=== PATIENT | male | born 1990 | race Caucasian/White ===

== ENCOUNTER 2024-10-07 11:21 | Emergency (ER) | payer OTHER, SELFPAY ==
[2024-10-07 11:23] VITALS: BP 111/78
[2024-10-07 11:50] VITALS: BMI 22.6
--- NOTE | 2024-10-07 11:53 | EDRN ---
Patient was playing disc frisbee and fell onto his left hand. +FOOSH. + 2 radial pulse. Brisk capillary refill.
--- NOTE | 2024-10-07 13:05 | ED.GENMED ---
History of Present Illness
General
Chief Complaint: Musculo-Skeletal Complaint
Source: patient
Exam Limitations: none
Time Seen by Provider: 10/07/24 12:09
Nursing documentation reviewed up to this point in time: agreed with
History of Present Illness
History of Present Illness:
This 34-year-old male presenting to the emergency department today with concerns of left-sided wrist discomfort after falling awkwardly while playing [employer]bee prior to arrival. Denies any numbness weakness or additional concerns otherwise.
No additional injuries. Not on blood thinners.
Review of Systems
Review of Systems
Allergies reviewed?: Yes
All Other Systems: ROS reviewed and negative except as documented in HPI and ROS
Phy Exam
Physical Exam
Physical Exam:
GENERAL: Alert , in no apparent distress
EYE: pupils equal and reactive
NECK: Supple, no significant adenopathy.
ENT: o/p clr, mmm.
CARDIAC: Regular rate and rhythm .
LUNGS: Clear breath sounds bilaterally, no acute respiratory distress, no wheezes/rales/rhonchi
ABDOMEN: Soft, without focal tenderness, no r/g, no cvat
NEUROLOGICAL: Alert and oriented, no focal neuro deficits
SKIN: Warm and dry, skin intact.
MUSCULOSKELETAL: Slight swelling to the distal forearm significant discomfort any movement at the wrist. Distal pulses at the radial and ulnar pulse. Good distal cap refill no edema, well perfused.
PSYCH: Normal and appropriate interaction.
Course
Orders/Labs/Results
Orders:
Orders
10/07/24 11:51
CR Wrist - Left Min 3 Views Urgent
Comment:
Reason For Exam: injury/pain
10/07/24 12:34
Splints/Slings/Crut- Treatment ONCE
Sling to: Left Arm
Location: Left
Type of Splint: Other
Comment: sugar tong
Vital Signs
Initial and Last Documented VS:
Initial Vital Signs
Temp Pulse Resp BP Pulse Ox
98.4 F 78 16 111/78 99
10/07/24 11:23 10/07/24 11:23 10/07/24 11:23 10/07/24 11:23 10/07/24 11:23
Last Documented Vital Signs
Temp Pulse Resp BP Pulse Ox
98.4 F 78 16 111/78 99
10/07/24 11:23 10/07/24 11:23 10/07/24 11:23 10/07/24 11:23 10/07/24 11:23
Procedures
Splinting/Sling Placement
Left Distal Wrist:
Procedure completed by: Tech/myself
Pre-splint extermity exam: neurovascular intact
Type of splint: thumb spica
Splint material: fiberglass
Splint checked by provider?: Yes
Type of sling: sling fitted
Normal distal neurovascular exam?: Yes
MDM/Problems Addressed
MDM/Problems Addressed:
34-year-old male presenting to the emergency department today with concerns of wrist discomfort after landing on his wrist while playing ultimate [employer]. Patient is found to have a distal radius and ulnar fracture. Patient was splinted.
Otherwise neurovascular intact and will follow-up with orthopedics next week. Return precautions given.
*Pulse Oximetry
SaO2: 99
Oxygen Mode of Delivery: Room air
Patient hypoxic: no (99)
*Critical Care Note
Total Time (30-74mins, 75-104mins- exclusive of procedures): Not Applicable
ED Attending Note
-
Portions of this chart may have been created with voice recognition software.� Occasional wrong word or��sound alike� substitutions may have occurred due to the inherent limitations of voice recognition software.
Discharge Plan
Departure
Patient Disposition: Home (Routine Discharge)
Date of Disposition: 10/07/24
Time of Disposition: 13:11
Patient with high blood pressure during this ER visit?: No
Condition: Good
Covid-19: Not Applicable
Discharge Problem:
Fracture of left wrist
Instructions: Wrist Fracture (DC)
Prescriptions:
No Action
No Current Medications
0
Referrals:
Salomon Rosas MD [Active, Orthopedics] - Follow up in 5-7 days
Kishor Bhatia CRNP [Family Provider, General]
Activity Restrictions/Additional Instructions:
You came to the emergency department today with concerns of wrist discomfort. You are found to have a distal radius and ulna fracture. Please follow closely with orthopedics otherwise rest ice and elevate until then. Return for any worsening, new
or concerning symptoms.
Interventions
Interventions:
*Risk Screen - Suicide Last Done: 10/07/24 11:23
*General Assessment Last Done: 10/07/24 11:50
*Neglect/Abuse Screening Last Done: 10/07/24 11:23
*ED- Fall Risk Assessment Last Done: 10/07/24 11:23
*ED COVID-19 Vaccine History Last Done: 10/07/24 11:50
ED-Musculoskeletal Assessment Last Done: 10/07/24 11:50
Discharge Date and Time
Print Language: MALTESE
--- NOTE | 2024-10-07 13:37 | EDRN ---
Reviewed discharge instructions with patient. Verbalized understanding. Ambulated with steady gait to the lobby.
[2024-10-07 13:38] VITALS: BP 124/78
== END 2024-10-07 13:30 | disposition home or self-care (01) ==
LOC: EMR 11:21
PROVIDERS: EMERGENCY PHYSICIAN Student in an Organized Health Care Education/Training Program; FAMILY PHYSICIAN Nurse Practitioner Primary Care
DX: S52.572A Other intraarticular fracture of lower end of left radius, initial encounter for closed fracture (principal); S52.612A Displaced fracture of left ulna styloid process, initial encounter for closed fracture; W18.39XA Other fall on same level, initial encounter; Y93.74 Activity, frisbee
CPT/HCPCS: 29125; 99283; 73110